=== PATIENT | female | born 1955 | race Two or more races ===

== ENCOUNTER 2021-05-22 11:12 | Emergency (ER) | payer OTHER ==
[~2021-05-22] VITALS: Ht 162.6 cm; Wt 69.4 kg
[~2021-05-22 11:12] MED LIST: ACTIGALL300 MG PO
[2021-05-22] MEDS ORDERED: ANASTROZOLE1 MG PO (11:31)
[2021-05-22] MEDS ORDERED: CITALOPRAM HBR20 MG PO (11:31)
[2021-05-22] MEDS ORDERED: KETO10TA2 PO (15:36)
[2021-05-22] MEDS ORDERED: NORFLEX100MG PO (15:36)
[2021-05-22] MEDS ORDERED: MEDROLPACK PO (15:36)
== END 2021-05-22 15:42 | disposition home or self-care (01) ==
LOC: ER 11:12
DX: M54.50 Low back pain, unspecified (principal); M25.551 Pain in right hip; Z88.0 Allergy status to penicillin

== ENCOUNTER 2021-05-28 12:35 | Outpatient (CLI) | payer OTHER ==
[~2021-05-28 12:35] MED LIST changes: +ANASTROZOLE1 MG PO; +CITALOPRAM HBR20 MG PO; +KETO10TA2 PO; +MEDROLPACK PO; +NORFLEX100MG PO
== END 2021-05-28 12:46 | disposition home or self-care (01) ==
LOC: MRI 12:35
PROVIDERS: ATTEND General Practice
DX: M54.9 Dorsalgia, unspecified (principal)
CPT/HCPCS: 72148

== ENCOUNTER 2022-03-12 07:34 | Outpatient (CLI) | payer OTHER | END 2022-03-12 07:35 | disposition home or self-care (01) | LOC: NUCLEAR 07:34 | PROVIDERS: ATTEND Specialist | DX: R07.82 Intercostal pain (principal); C50.911 Malignant neoplasm of unspecified site of right female breast | CPT/HCPCS: 78306; A9503 ==

== ENCOUNTER 2022-03-29 14:41 | Outpatient (CLI) | payer OTHER | END 2022-03-29 14:42 | disposition home or self-care (01) | LOC: LAB 14:41 | PROVIDERS: ATTEND Radiology Diagnostic Radiology | DX: R10.2 Pelvic and perineal pain (principal) ==

== ENCOUNTER 2022-04-16 09:18 | Outpatient (CLI) | payer OTHER | END 2022-04-16 09:31 | disposition home or self-care (01) | LOC: TOM 09:18 | PROVIDERS: ATTEND Obstetrics & Gynecology Gynecology | DX: R10.2 Pelvic and perineal pain (principal) ==

== ENCOUNTER 2024-03-22 23:56 | Inpatient (IN) | payer OTHER ==
[~2024-03-22] VITALS: Ht 162.6 cm; Wt 61.2 kg
[2024-03-23] MEDS ORDERED: COZAAR25 MG PO (00:10)
[2024-03-23] MEDS ORDERED: ESCITALOPRAM OX10 MG PO (00:10)
--- NOTE | 2024-03-23 00:10 | NUR ---
SE RECIBE PACIENTE ALERTA Y ORIENTADA X3 LA CUAL REFIERE VENIR POR DOLOR ABDOMINAL Y VOMITOS DESDE LA NOCHE DE HOY. SE MIDEN S/V Y SE UBICA.
[2024-03-23] MEDS ORDERED: RINGERS SOLUTION,LACTATED 1,000 ML IV STA (02:18)
[2024-03-23] MEDS ORDERED: MEPERIDINE HCL/PF 50 MG/ML VIAL IM STA (02:19)
[2024-03-23] MEDS ORDERED: PROMETHAZINE HCL 50 MG/ML AMPUL IM STA (02:20)
[2024-03-23] MEDS ORDERED: HYOSCYAMINE SULFATE 0.125 MG TAB.SUBL ONE (02:25)
[2024-03-23] MEDS ORDERED: PROMETHAZINE HCL 50 MG/ML AMPUL IM ONE (02:25)
[2024-03-23] MEDS ORDERED: HYOSCYAMINE SULFATE 0.125 MG TAB.SUBL SL ONE (02:30)
--- NOTE | 2024-03-23 02:32 | NUR ---
SE ORIENTA PTE SOBRE TX MEDICO EL CUAL REFIERE ENTENDER.SE LE EXTRAEN MUESTRAS BAJO MEDIDAS ASEPTICAS,SE CANALIZA Y SE ADMINISTRAN MEDICAMENTOS MARÍA ORDEN MEDICA.
[2024-03-23 02:55] LABS: HEMATOCRIT 45.5 % (36.0-45.00); HEMOGLOBIN 15.4 g/dL (12.0-15.00); MEAN CELL VOLUME 96.8 fL (80.00-100.00); MEAN CORPUSCULAR HEMOGLOBIN 32.7 pg (27.00-32.0); MEAN CORPUSCULAR HGB CONC 33.8 g/dl (32.0-36.0); PLATELET COUNT 184 K/uL (150-450)
[2024-03-23 03:18] LABS: INR 1.05; PARTIAL THROMBOPLASTIN TIME 26.8 SECONDS (22.0-34.0); PROTHROMBIN TIME 11.4 SECONDS (9.0-11.5)
[2024-03-23 03:24] LABS: BILIRUBIN TOTAL 1.03 mg/dL (0.3-1.2); CALCIUM 9.3 mg/dL (8.5-10.1); CREATININE SERUM 0.78 mg/dL (0.55-1.02); GFR 73.89; GLOBULINA 4.8 G/DL (2.4-3.5); POTASSIUM 3.11 mEq/L (3.5-5.1); TOTAL PROTEIN 8.8 gm/dL (6.4-8.2)
[2024-03-23] MEDS ORDERED: BARIUM SULFATE 450 ML ORAL.SUSP PO ONE (06:48)
[2024-03-23] MEDS ORDERED: ONDANSETRON HCL 2 MG/ML VIAL ONE (09:41)
[2024-03-23] MEDS ORDERED: VANCOMYCIN HCL 1,000 MG VIAL ONE (09:41)
[2024-03-23] MEDS ORDERED: FAMOTIDINE/PF 20 MG/2 ML VIAL ONE ×2 (09:41→12:17)
[2024-03-23] MEDS ORDERED: MEPERIDINE HCL/PF 50 MG/ML VIAL IM ONE (09:45)
[2024-03-23] MEDS ORDERED: VANCOMYCIN HCL 1,000 MG VIAL IV ONE (09:45)
[2024-03-23] MEDS ORDERED: FAMOtidine 10 MG/ML (4ML VIAL) IV ONE (09:45)
[2024-03-23] MEDS ORDERED: FAMOTIDINE/PF 20 MG in 0.9 % SODIUM CHLORIDE 8 ML IV PUSH SCH (11:10)
[2024-03-23] MEDS ORDERED: POTASSIUM CHLORIDE 20MEQ/100ML H2O PB IV ONE ×2 (11:15→12:17)
[2024-03-23] MEDS ORDERED: METRONIDAZOLE/SODIUM CHLORIDE 500 MG/100 ML PIGGYBACK IV SCH (11:16)
[2024-03-23] MEDS ORDERED: 0.9 % SODIUM CHLORIDE 1,000 ML IV SCH (11:30)
[2024-03-23] MEDS ORDERED: ENALAPRILAT DIHYDRATE 1.25 MG/ML VIAL IV PRN (11:30)
[2024-03-23] MEDS ORDERED: ONDANSETRON HCL 4 MG in 0.9 % SODIUM CHLORIDE 50 ML IV PRN (11:30)
[2024-03-23 11:41] VITALS: BP 130/80
[2024-03-23] MEDS ORDERED: MORPHINE SULFATE 4 MG/ML VIAL IV PRN (12:00)
[2024-03-23] MEDS ORDERED: METRONIDAZOLE/SODIUM CHLORIDE 500 MG/100 ML PIGGYBACK IV ONE (12:16)
[2024-03-23 14:04] LABS: INR 1.08; PARTIAL THROMBOPLASTIN TIME 29.9 SECONDS (22.0-34.0); PROTHROMBIN TIME 11.7 SECONDS (9.0-11.5)
[2024-03-23 14:12] LABS: ALBUMIN 3.7 gm/dL (3.4-5.0); BILIRUBIN TOTAL 0.97 mg/dL (0.3-1.2); BILIRUBIN,CONJUGATED 0.3 mg/dL (0.0-0.2); BILIRUBIN,UNCONJUGATED 0.67 mg/dL (0.0-0.6); CHOL HDL RATIO 1.9 (0-5.0); TOTAL PROTEIN 8.5 gm/dL (6.4-8.2)
[2024-03-23 14:14] LABS: PH,URINE 6.5 (5.0-8.0); URINE APPEARANCE Cloudy; URINE BILIRRUBIN Negative (NEGATIVE); URINE BLOOD Trace; URINE COLOR Yellow; URINE KETONE 15 (NEGATIVE); URINE LEUKOCYTE Negative; URINE NITRATE Negative; URINE PROTEIN 30 (NEGATIVE)
[2024-03-23 14:17] LABS: URINE BACTERIA 292.5 uL (0.0-1933); URINE RBC 26.3 uL (0.0-20.8)
[2024-03-23 14:42] LABS: URINE CAST 0.14 uL (0.0-1.40); URINE GLUCOSE 500 MG/DL (NEGATIVE)
[2024-03-23 15:45] VITALS: BP 174/98; O2SAT 96
[2024-03-23 17:30] VITALS: BP 176/93; O2SAT 100
[2024-03-24] VITALS: BP 134/85; O2SAT 95
[2024-03-24] MEDS ORDERED: MORPHINE SULFATE 4 MG/ML CARTRIDGE IV SCH (00:58)
[2024-03-24] MEDS ORDERED: MORPHINE SULFATE 4 MG/ML CARTRIDGE IV PRN (01:00)
[2024-03-24 08:53] LABS: ALBUMIN 3.2 gm/dL (3.4-5.0); BILIRUBIN TOTAL 1.41 mg/dL (0.3-1.2); CALCIUM 8.8 mg/dL (8.5-10.1); CREATININE SERUM 0.72 mg/dL (0.55-1.02); GFR 81.04; GLOBULINA 4.1 G/DL (2.4-3.5); POTASSIUM 4.12 mEq/L (3.5-5.1); TOTAL PROTEIN 7.3 gm/dL (6.4-8.2)
[2024-03-24 09:34] VITALS: BP 132/83; O2SAT 96
[2024-03-24] MEDS ORDERED: SUGAMMADEX SODIUM 200 MG/2 ML VIAL IV ONE (14:58)
[2024-03-24] MEDS ORDERED: DEXTROSE 5 %-0.45 % SOD CHLORD 1,000 ML IV SCH (16:19)
[2024-03-24 17:52] VITALS: BP 119/59; O2SAT 97
[2024-03-24] MEDS ORDERED: CIPROFLOXACIN IN 5 % DEXTROSE 200 ML IV SCH (21:00)
[2024-03-25 00:19] VITALS: BP 151/93; O2SAT 96
[2024-03-25 07:45] LABS: HEMATOCRIT 41.2 % (36.0-45.00); HEMOGLOBIN 14.3 g/dL (12.0-15.00); MEAN CELL VOLUME 96.4 fL (80.00-100.00); MEAN CORPUSCULAR HEMOGLOBIN 33.5 pg (27.00-32.0); MEAN CORPUSCULAR HGB CONC 34.7 g/dl (32.0-36.0); PLATELET COUNT 186 K/uL (150-450); RED BLOOD COUNT 4.28 M/uL (4.00-6.00); RED CELL DISTRIBUTION WIDTH 13.7 % (11.5-14.5)
[2024-03-25 08:27] LABS: CALCIUM 8.2 mg/dL (8.5-10.1); CREATININE SERUM 0.68 mg/dL (0.55-1.02); GFR 86.57; POTASSIUM 4.15 mEq/L (3.5-5.1)
[2024-03-25 09:09] VITALS: BP 109/76; O2SAT 96
[2024-03-25 16:00] VITALS: BP 132/65; O2SAT 95
[2024-03-25] MEDS ORDERED: METOCLOPRAMIDE HCL 5 MG/ML VIAL IV SCH (21:00)
[2024-03-26 01:12] VITALS: BP 128/64; O2SAT 96
[2024-03-26 08:11] VITALS: BP 110/55; O2SAT 96
[2024-03-26 16:56] VITALS: BP 134/69; O2SAT 96
[2024-03-27] VITALS: BP 132/61; O2SAT 97
[2024-03-27 08:00] VITALS: BP 136/73; O2SAT 98
[2024-03-27] MEDS ORDERED: AMINO ACIDS 4.25%/DEXTROSE 10% 1,000 ML CENTRAL SCH (17:00)
[2024-03-27 20:04] VITALS: BP 128/82; O2SAT 97
[2024-03-28 00:30] VITALS: BP 120/61; O2SAT 97
[2024-03-28 07:39] LABS: HEMATOCRIT 30.7 % (36.0-45.00); HEMOGLOBIN 10.8 g/dL (12.0-15.00); MEAN CELL VOLUME 94.7 fL (80.00-100.00); MEAN CORPUSCULAR HEMOGLOBIN 33.2 pg (27.00-32.0); MEAN CORPUSCULAR HGB CONC 35.1 g/dl (32.0-36.0); PLATELET COUNT 180 K/uL (150-450); RED BLOOD COUNT 3.24 M/uL (4.00-6.00); RED CELL DISTRIBUTION WIDTH 12.6 % (11.5-14.5)
[2024-03-28 08:27] VITALS: BP 122/81; O2SAT 95
[2024-03-28 08:54] LABS: ALBUMIN 1.9 gm/dL (3.4-5.0); BILIRUBIN TOTAL 1.37 mg/dL (0.3-1.2); CALCIUM 7.4 mg/dL (8.5-10.1); CREATININE SERUM 0.38 mg/dL (0.55-1.02); GFR 169.44; GLOBULINA 3.1 G/DL (2.4-3.5); POTASSIUM 3.06 mEq/L (3.5-5.1)
[2024-03-28 09:04] LABS: CALCIUM 7.7 mg/dL (8.5-10.1); CREATININE SERUM 0.39 mg/dL (0.55-1.02); GFR 164.43; POTASSIUM 3.05 mEq/L (3.5-5.1)
[2024-03-28] MEDS ORDERED: MAGNESIUM SULFATE IN WATER 50 ML IV NR (13:15)
[2024-03-28] MEDS ORDERED: POTASSIUM CHLORIDE IN WATER 40 MEQ/100 ML PIGGYBAG IV SCH ×2 (13:15→18:00)
[2024-03-28] MEDS ORDERED: KETOROLAC TROMETHAMINE 30 MG VIAL IV PRN (14:30)
[2024-03-28 16:00] VITALS: BP 145/72; O2SAT 96
[2024-03-29 01:37] VITALS: BP 135/61; O2SAT 100
[2024-03-29 08:20] VITALS: BP 148/68; O2SAT 95
[2024-03-29 16:00] VITALS: BP 135/59; O2SAT 98
[2024-03-30] VITALS: BP 115/57; O2SAT 98
[2024-03-30 08:00] VITALS: BP 97/60; O2SAT 100
[2024-03-30] MEDS ORDERED: FAMOTIDINE/PF 20 MG/2 ML VIAL ONE (08:44)
[2024-03-30] MEDS ORDERED: POTASSIUM CHLORIDE IN WATER 40 MEQ/100 ML PIGGYBAG IV SCH (12:00)
[2024-03-30] MEDS ORDERED: BUTALB/ACETAMINOPHEN/CAFFEINE 1 TAB TABLET PO PRN (13:45)
[2024-03-30 17:00] VITALS: BP 110/63; O2SAT 95
[2024-03-31 01:05] VITALS: BP 103/60; O2SAT 96
[2024-03-31 08:00] VITALS: BP 117/62; O2SAT 95
[2024-03-31 08:14] LABS: ALBUMIN 2.2 gm/dL (3.4-5.0); BILIRUBIN TOTAL 0.7 mg/dL (0.3-1.2); CALCIUM 8.7 mg/dL (8.5-10.1); CREATININE SERUM 0.42 mg/dL (0.55-1.02); GFR 150.95; GLOBULINA 3.1 G/DL (2.4-3.5); POTASSIUM 4.09 mEq/L (3.5-5.1); TOTAL PROTEIN 5.3 gm/dL (6.4-8.2)
[2024-03-31 08:19] LABS: HEMOGLOBIN 10.2 g/dL (12.0-15.00); MEAN CELL VOLUME 94.1 fL (80.00-100.00); PLATELET COUNT 303 K/uL (150-450); RED BLOOD COUNT 3.09 M/uL (4.00-6.00)
== END 2024-03-31 16:29 | disposition home or self-care (01) | DRG 331 ==
LOC: ER → SURH 03-23 12:33 → SEC-K 03-23 12:33 → SURH 03-23 14:33
PROVIDERS: General Practice; Student in an Organized Health Care Education/Training Program; Surgery; ADMIT Internal Medicine; ATTEND Internal Medicine
PROC: BW21ZZZ Computerized Tomography (CT Scan) of Abdomen and Pelvis (ICD-10-PCS; 2024-03-23)
PROC: 0DN80ZZ Release Small Intestine, Open Approach (ICD-10-PCS; 2024-03-24)
PROC: 0DH80UZ Insertion of Feeding Device into Small Intestine, Open Approach (ICD-10-PCS; 2024-03-24)
PROC: 0DT80ZZ Resection of Small Intestine, Open Approach (ICD-10-PCS; principal; 2024-03-24 12:00)
PROC: 0DH68UZ Insertion of Feeding Device into Stomach, Via Natural or Artificial Opening Endoscopic (ICD-10-PCS; 2024-03-28)
DX: K56.699 Other intestinal obstruction unspecified as to partial versus complete obstruction (principal); I10 Essential (primary) hypertension; Z85.3 Personal history of malignant neoplasm of breast